=== PATIENT | male | born 1975 | race African-American/Black ===

== ENCOUNTER 2018-02-07 01:03 | Emergency (ER) | payer MEDICAID ==
[~2018-02-07] VITALS: Ht 160 cm; Wt 71.2 kg
[2018-02-07] MEDS ORDERED: ATENOLOL25 MG ORAL ×2 (01:08→01:33)
[2018-02-07 01:29] VITALS: BP 166/110
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
[2018-02-07] MEDS ORDERED: Atenolol 25mg tab ORAL ONE (01:30)
[2018-02-07] MEDS ORDERED: BENADRYL25 MG ORAL (01:33)
[2018-02-07] MEDS ORDERED: PERMETHRIN60 GM TOPIC (01:33)
[2018-02-07] MEDS ORDERED: BACITRACIN15 GM TOPIC (01:33)
[2018-02-07 01:45] VITALS: BP 166/110
== END 2018-02-07 01:45 | disposition home or self-care (01) ==
LOC: EDBD 01:03 → EMR 01:15
DX: F10.129 Alcohol abuse with intoxication, unspecified (principal); L29.9 Pruritus, unspecified; I10 Essential (primary) hypertension; F32.9 Major depressive disorder, single episode, unspecified
CPT/HCPCS: 99284